=== PATIENT | male | born 1995 | race Caucasian/White ===

== ENCOUNTER 2021-07-18 18:55 | Observation (INO) | payer OTHER ==
[~2021-07-18] VITALS: Ht 162.6 cm; Wt 86.0 kg
--- NOTE | 2021-07-18 19:58 | PHYS DOC ---
General Adult EDM: Chief Complaint: UPPER EXTREMITY PAIN HPI: HPI: Patient is a 25-year-old male who presents with pain and soreness to his arms, chest, back and stomach. Patient states "on Tuesday I started working out pretty intense and I have been pretty sore". "On Tuesday I was having a hard time even lifting my arms up above my head and my urine has been really dark". "I was nervous because I had been drinking a ton of water". Patient denies any medical history. Patient is a smoker. Denies alcohol or drug use. (IQRA HUERTAS APRN) Review of Systems: Review of Systems: ROS At least 10 ROS systems have been reviewed and are negative except as documented in the HPI. General: Negative except as outlined in HPI above. Skin: Negative except as outlined in HPI above. HEENT: Negative except as outlined in HPI above. Neck: Negative except as outlined in HPI above. Respiratory: Negative except as outlined in HPI above.. Cardiovascular: Negative except as outlined in HPI above. Abdomen: Negative except as outlined in HPI above. : Negative except as outlined in HPI above. Back/MSK: Negative except as outlined in HPI above. Neuro: Negative except as outlined in HPI above. Psych: Negative except as outlined in HPI above. (IQRA HUERTAS SOCIAL MEDIA CAMPAIGN MANAGER) Physical Exam: PE: Constitutional: Well developed, well nourished, no acute distress, non-toxic appearance. [] HENT: Normocephalic, atraumatic, bilateral external ears normal, oropharynx moist, no oral exudates, nose normal. [] Eyes: PERRLA, EOMI, conjunctiva normal, no discharge. [] Neck: Normal range of motion, no tenderness, supple, no stridor. [] Cardiovascular:Heart rate regular rhythm, no murmur [] Lungs & Thorax: Bilateral breath sounds clear to auscultation [] Abdomen: Bowel sounds normal, soft, generalized tenderness, no masses, no pulsatile masses. [] Skin: Warm, dry, no erythema, no rash. [] Back: No tenderness, no CVA tenderness. [] Extremities: Upper arm tenderness, no cyanosis, no clubbing, ROM intact, no edema. [] Neurologic: Alert and oriented X 3, normal motor function, normal sensory function, no focal deficits noted. [] Psychologic: Affect normal, judgement normal, mood normal. [] (IQRA HUERTAS APRN) Current Patient Data: Labs: Laboratory Tests Test 07/18/21 20:50 White Blood Count 12.4 x10^3/uL Red Blood Count 5.30 x10^6/uL Hemoglobin 15.7 g/dL Hematocrit 45.9 % Mean Corpuscular Volume 87 fL Mean Corpuscular Hemoglobin 30 pg Mean Corpuscular Hemoglobin Concent 34 g/dL Red Cell Distribution Width 13.6 % Platelet Count 324 x10^3/uL Neutrophils (%) (Auto) 69 % Lymphocytes (%) (Auto) 20 % Monocytes (%) (Auto) 8 % Eosinophils (%) (Auto) 2 % Basophils (%) (Auto) 0 % Neutrophils # (Auto) 8.6 x10^3uL Lymphocytes # (Auto) 2.5 x10^3/uL Monocytes # (Auto) 1.0 x10^3/uL Eosinophils # (Auto) 0.3 x10^3/uL Basophils # (Auto) 0.0 x10^3/uL Urine Collection Type Unknown Urine Color Yuliana Urine Clarity Hazy Urine pH 6.0 Urine Specific [place] 1.015 Urine Protein 100 mg/dl Urine Glucose (UA) Neg mg/dL Urine Ketones (Stick) Neg mg/dL Urine Blood Large Urine Nitrite Neg Urine Bilirubin Neg Urine Urobilinogen Dipstick 1.0 mg/dL Urine Leukocyte Esterase Neg Urine RBC 3-5 /HPF Urine WBC 1-4 /HPF Urine Squamous Epithelial Cells Occ /LPF Urine Bacteria Few /HPF Sodium Level 141 mmol/L Potassium Level 4.1 mmol/L Chloride Level 103 mmol/L Carbon Dioxide Level 28 mmol/L Anion Gap 10 Blood Urea Nitrogen 16 mg/dL Creatinine 0.9 mg/dL Estimated GFR (Cockcroft-Gault) 103.7 BUN/Creatinine Ratio 18 Glucose Level 91 mg/dL Uric Acid 5.9 mg/dL Calcium Level 9.1 mg/dL Total Bilirubin 0.6 mg/dL Aspartate Amino Transf (AST/SGOT) 1525 U/L Alanine Aminotransferase (ALT/SGPT) 477 U/L Alkaline Phosphatase 74 U/L Creatine Kinase 72804 U/L Total Protein 7.2 g/dL Albumin 4.2 g/dL Albumin/Globulin Ratio 1.4 Current Medications Medications (Trade) Dose Ordered Sig/Cha Route PRN Reason Start Time Stop Time Status Last Admin Dose Admin Sodium Chloride 1,000 ml @ 1,000 mls/hr 1X ONCE IV 07/18/21 20:00 07/18/21 22:46 DC 07/18/21 20:54 Sodium Chloride 1,000 ml @ 1,000 mls/hr 1X ONCE IV 07/18/21 22:15 07/18/21 23:14 DC 07/18/21 22:30 Vital Signs: Vital Signs Date Time Temp Pulse Resp B/P (MAP) Pulse Ox O2 Delivery O2 Flow Rate FiO2 07/18/21 19:56 97.2 63 16 148/88 (108) 97 Room Air Vital Signs Date Time Temp Pulse Resp B/P (MAP) Pulse Ox O2 Delivery O2 Flow Rate FiO2 07/18/21 19:56 97.2 63 16 148/88 (108) 97 Room Air (DIANE FLORES DO) EKG: EKG: [] (IQRA HUERTAS APRN) EKG: EKG ordered and interpreted by myself at 2146 hrs. is sinus rhythm at 57 bpm, unremarkable intervals, no axis deviation, no acute ischemic findings, no STEMI (DIANE FLORES DO) Radiology/Procedures: Radiology/Procedures: [] (IQRA HUERTAS APRN) Heart Score: C/O Chest Pain: No Risk Factors: Risk Factors: DM, Current or recent (<one month) smoker, HTN, HLP, family history of CAD, obesity. Risk Scores: Score 0 - 3: 2.5% MACE over next 6 weeks - Discharge Home Score 4 - 6: 20.3% MACE over next 6 weeks - Admit for Clinical Observation Score 7 - 10: 72.7% MACE over next 6 weeks - Early Invasive Strategies (IQRA HUERTAS APRN) C/O Chest Pain: No HEART Score for Chest Pain: HEART Score for Chest Pain Response (Comments) Value History Slighlty/Non-Suspicious 0 ECG Normal 0 Age < 45 0 Risk Factors No Risk Factors 0 Total 0 (DIANE FLORES DO) Course & Med Decision Making: Course & Med Decision Making Pertinent Labs and Imaging studies reviewed. (See chart for details) [] 25-year-old male who presents with pain to upper body after starting an intense workout program on Tuesday. UA obtained. Urine was very dark and tea colored. CBC, CMP, CK, uric acid obtained to rule out rhabdomyolysis. Normal saline bolus started. UA positive for blood. Negative for infection. Second Liter NS bolus started. Transfer of patient care to @ 2211 (IQRA HUERTAS APRN) Course & Med Decision Making I assumed care of patient after PHOTOGRAPHY INTERN left for the evening I reviewed ER care so far after receiving comprehensive signout and personally saw patient repeating certain aspects of history and physical exam I reviewed all ER findings and disclose them with patient and significant other at bedside. I discussed my concern for rhabdomyolysis that will require inpatient medical management for continued IV fluids, patient and significant other amenable, source being excess physical activity I contacted hospitalist and discussed need for hospital admission, patient accepted under the care of Dr. Holt I have updated patient and significant other at bedside on need for hospital admission and they were amenable. All questions and concerns addressed prior to hospital admission (DIANE FLORES DO) Leslion Disclaimer: Dragtamara Disclaimer: This electronic medical record was generated, in whole or in part, using a voice recognition dictation system. (IQRA HUERTAS APRN) Departure Departure: Impression: Primary Impression: Rhabdomyolysis Disposition: ADMITTED INPATIENT Admitting Physician: Jr Holt (DIANE FLORES DO) Condition: STABLE IQRA HUERTAS APRN Jul 18, 2021 19:58 DIANE FLORES DO Jul 18, 2021 23:06
[2021-07-18] MEDS ORDERED: IV NORMAL SALINE 1,000ML 1,000 ML IV ONE ×2 (20:00→22:15)
[2021-07-18 21:34] LABS: BASO % 0 % (0-3); EOS # 0.3 x10^3/uL (0.0-0.7); EOS % 2 % (0-3); HEMATOCRIT 45.9 % (39.0-53.0); HEMOGLOBIN 15.7 g/dL (13.0-17.5); LYMPH # 2.5 x10^3/uL (1.0-4.8); LYMPH % 20 % (24-48); MEAN CORPUSCULAR HEMOGLOBIN 30 pg (25-35); MEAN CORPUSCULAR HGB CONC 34 g/dL (31-37); MEAN CORPUSCULAR VOLUME 87 fL (79-100); MONO % 8 % (0-9); NEUT # 8.6 x10^3uL (1.8-7.7); NEUT % 69 % (31-73); PLATELET COUNT 324 x10^3/uL (140-400); RED CELL DISTRIBUTION WIDTH 13.6 % (11.5-14.5); WHITE BLOOD COUNT 12.4 x10^3/uL (4.0-11.0)
[2021-07-18 21:41] LABS: CALCIUM 9.1 mg/dL (8.5-10.1); CREATININE 0.9 mg/dL (0.7-1.3); GFR 103.7; POTASSIUM 4.1 mmol/L (3.5-5.1)
[2021-07-18 21:50] LABS: BACTERIA,URINE FEW /HPF (0-FEW); BILIRUBIN,URINE NEG (NEG); CLARITY,URINE HAZY; COLOR,URINE AMBER; GLUCOSE,URINE NEG (NEG); NITRITE,URINE NEG (NEG); SQUAMOUS EPITHELIAL CELL,UR OCC /LPF
[2021-07-18 21:57] LABS: ALBUMIN 4.2 g/dL (3.4-5.0); ALBUMIN/GLOBULIN RATIO 1.4 (1.0-1.7); TOTAL BILIRUBIN 0.6 mg/dL (0.2-1.0); TOTAL PROTEIN 7.2 g/dL (6.4-8.2); URIC ACID 5.9 mg/dL (3.5-7.2)
--- NOTE | 2021-07-18 23:36 | EKG ---
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
[2021-07-18] MEDS ORDERED: ACETAMINOPHEN 325 MG TABLET PO PRN (23:45)
[2021-07-18] MEDS ORDERED: NITROGLYCERIN SUBLINGUAL 0.4 MG BOTTLE OF 25. SL PRN (23:45)
[2021-07-19 00:44] VITALS: BP 121/80
[2021-07-19] MEDS: IV NORMAL SALINE 1,000ML 1,000 ML IV SCH ×3 (00:54→08:30)
--- NOTE | 2021-07-19 01:18 | NUR ---
The patient, GOOD OSORIO, 25 y/o, M admitted by EMMA WOODS MD, was given written information regarding hospital policies, unit procedures and contact persons. Valuables were checked and left with the patient. Pt IV fluids resumed. Will continue to monitor.
[2021-07-19 06:32] VITALS: BP 116/66
[2021-07-19 06:57] LABS: ANION GAP 6 (6-14); BLOOD UREA NITROGEN 12 mg/dL (8-26); CALCIUM 8.4 mg/dL (8.5-10.1); CARBON DIOXIDE 28 mmol/L (21-32); CHLORIDE 106 mmol/L (98-107); CREATININE 0.8 mg/dL (0.7-1.3); GFR 118.8; GLUCOSE 100 mg/dL (70-99); POTASSIUM 4.4 mmol/L (3.5-5.1); SODIUM 140 mmol/L (136-145)
[2021-07-19 08:36] LABS: ALBUMIN 3.4 g/dL (3.4-5.0); ALBUMIN/GLOBULIN RATIO 1.1 (1.0-1.7); ALK PHOS 59 U/L (46-116); ALT (SGPT) 455 U/L (16-63); AST (SGOT) 1360 U/L (15-37); TOTAL BILIRUBIN 1.2 mg/dL (0.2-1.0); TOTAL PROTEIN 6.4 g/dL (6.4-8.2)
--- NOTE | 2021-07-19 08:44 | HP ---
ATTENDING PHYSICIAN: Dr. Holt. CHIEF COMPLAINT: Myalgias. 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 He started intense workout 4 days ago. Since that time, he has been very sore, having a hard time lifting his arm and his head. His urine has turned brown. In the ED, he had lab work done and he had significant rhabdomyolysis. Renal function was adequate. He was admitted then for hydration and followup chemistries. In the ED, his CPK was 83,900 with a concomitant elevation of ALT and AST, creatinine was 0.9 mg/dL. PAST MEDICAL HISTORY: Unremarkable for any chronic illness. He is 25. He is healthy. He does not have any chronic illnesses. No medications. ALLERGIES: No known drug allergies. SOCIAL HISTORY: He is a smoker. He does not drink alcohol or use drugs. FAMILY HISTORY: Interesting enough, his father at age 50 of hypertrophic cardiomyopathy. Since that time, he has been evaluated and he does not have the condition. His mom is still alive at age 53. He was born in [place]. He is active . REVIEW OF SYSTEMS: Significant for the problems that brought him in. All other systems reviewed and turned out to be negative. PHYSICAL EXAMINATION: GENERAL: When I saw him, this is a healthy young man. VITAL SIGNS: Initial vital signs showed blood pressure 116/66, pulse is 54 and regular, temperature 97.7 degrees Fahrenheit, oxygen saturation 96% on room air. HEENT: Head is without trauma. Pupils are reactive. Sclerae nonicteric. Oropharynx is clear. NECK: Supple, no bruits. LUNGS: Clear. CARDIOVASCULAR: Regular heart tones. ABDOMEN: Soft. No guarding or rebound tenderness. Normoactive bowel sounds. EXTREMITIES: Show no cyanosis or edema. There is no flank tenderness. NEUROLOGIC: Function focally intact. SKIN: Warm and dry. PERTINENT LABORATORY STUDIES: Admission hemoglobin was 15.7 g/dL, white count 12,400. Creatinine 0.9 mg/dL, BUN 16. Electrolytes within normal range. AST 1500, ALT 477. Creatinine kinase was 83,920. ASSESSMENT: 1. 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 2. There are no signs of renal compromise at this time. PLAN: 1. Admit to the inpatient unit. 2. IV hydration. 3. Follow up chemistries and CPK in the morning. 4. Diet as tolerated. [place] DR: Giovanny TID: [id number]
--- NOTE | 2021-07-19 08:58 | DS ---
DATE OF DISCHARGE: 07/19/2021 ATTENDING PHYSICIAN: Dr. Holt. DATE OF DISCHARGE: 07/19/2021 FINAL DISCHARGE DIAGNOSIS: Acute rhabdomyolysis. 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 He was doing intense workout 3 days prior he developed myalgias, dark urine. He had evidence of rhabdomyolysis with a CPK of 87,000. He was admitted for hydration and followup lab work. He is otherwise healthy. He is not on any chronic medicine. No drug use. PHYSICAL EXAMINATION: Please see my dictated note. PERTINENT LABORATORY AND X-RAY STUDIES: On admission, his creatinine was 0.9 mg/dL with a BUN of 16. His CPK was 83,900. ALT, AST concomitantly elevated. Followup lab work the next day showed stable creatinine of 0.8 mg/dL, BUN was 12 from dilution. His ALT and CPK was still pending at the time of discharge. COURSE IN THE HOSPITAL: The patient was admitted. He was given a regular diet, given IV hydration. Urine color changed to a clear. He had no signs. He had no symptoms of pain or myalgias. By the second hospital day, his vital signs were stable. He was ready for discharge. No restrictions on diet. Strong encouragement to quit smoking. I did recommend that he [place] [facility] for a followup chemistry and CPK in 1 week's time. He understands and will schedule an appointment. The patient was then discharged from our hospital in stable condition with explicit instructions for followup care. LLOYD/ANÍBAL GALICIA: LLOYD/char TID: [id number]
[2021-07-19] MEDS ORDERED: FLU VACC QUAD 21-22 (6MOS+) PF 0.5 ML SYRINGE. VAX IM ONE (09:00)
--- NOTE | 2021-07-19 09:08 | NUR ---
PATIENT REFUSED ANOTHER BAG OF FLUIDS THIS MORNING WELL HIS FLU VACCINE. PT STATES THAT HE WANTS TO RECIEVE FLU VACCINE AFTER HE FEELS BETTER DUE TO UPPER EXT SORENESS AND RHABDOMYOLYSIS. PT GIVEN INFORMATION ABOUT FOLLOWING UP THIS WEEK WITH PCP TO INFORM THEM OF THIS HOSPITALIZATION AND WHEN TO RESUME DAILY ACTIVITIES . ALSO PT REMINDED TO FOLLOW UP FOR LAB DRAWS TO INCLUDE CHEMISTRY AND CK IN A WEEK. PT GIVEN INFORMATION ON S/S OF WORSENING AND WHEN TO SEEK MEDICAL ATTENTION. PT GIVEN DISCHARGE INFORMATION WHICH HAS SMOKING CESSATION HANDOUTS WELL.
== END 2021-07-19 10:00 | disposition home or self-care (01) ==
LOC: ER 18:55 → 1 SOUTH 23:35 → INTOOBSV 23:35
PROVIDERS: ADMIT Hospitalist; ATTEND Hospitalist
DX: M62.82 Rhabdomyolysis (principal); Z20.822 Contact with and (suspected) exposure to COVID-19; F17.200 Nicotine dependence, unspecified, uncomplicated; Z79.899 Other long term (current) drug therapy
CPT/HCPCS: 36415; 80048; 80053; 81001; 82550; 84550; 85025; 87426; 93005; 96360; 96361; 99284; G0378; J7030; U0003; G0379; 99285-25

== ENCOUNTER 2021-07-21 12:56 | Emergency (ER) | payer OTHER ==
[~2021-07-21] VITALS: Ht 162.6 cm; Wt 86.0 kg
[2021-07-21] MEDS: IV NORMAL SALINE 1,000ML 1,000 ML IV ONE ×3 (14:00→18:30)
[2021-07-21] MEDS ORDERED: ONDANSETRON PF 4 MG/2 ML VIAL. ONE (14:11)
[2021-07-21 14:19] LABS: BASO # 0.1 x10^3/uL (0.0-0.2); BASO % 1 % (0-3); EOS # 0.2 x10^3/uL (0.0-0.7); EOS % 2 % (0-3); HEMATOCRIT 43.8 % (39.0-53.0); HEMOGLOBIN 14.9 g/dL (13.0-17.5); LYMPH # 1.8 x10^3/uL (1.0-4.8); LYMPH % 20 % (24-48); MEAN CORPUSCULAR HEMOGLOBIN 29 pg (25-35); MEAN CORPUSCULAR HGB CONC 34 g/dL (31-37); MEAN CORPUSCULAR VOLUME 87 fL (79-100); MONO # 0.8 x10^3/uL (0.0-1.1); MONO % 9 % (0-9); NEUT # 6.2 x10^3uL (1.8-7.7); NEUT % 68 % (31-73); PLATELET COUNT 310 x10^3/uL (140-400); RED BLOOD COUNT 5.06 x10^6/uL (4.30-5.70); RED CELL DISTRIBUTION WIDTH 13.5 % (11.5-14.5)
[2021-07-21 14:30] LABS: BACTERIA,URINE FEW /HPF (0-FEW); BILIRUBIN,URINE NEG (NEG); CLARITY,URINE CLEAR; COLOR,URINE YELLOW; GLUCOSE,URINE NEG (NEG); NITRITE,URINE NEG (NEG); UROBILINOGEN,URINE 0.2 mg/dL (0.2 mg/dL)
[2021-07-21 14:58] LABS: CALCIUM 9.4 mg/dL (8.5-10.1); GFR 91.8; POTASSIUM 4.3 mmol/L (3.5-5.1)
[2021-07-21] MEDS: ONDANSETRON PF 4 MG/2 ML VIAL. IVP ONE (15:00)
[2021-07-21 15:16] LABS: ALBUMIN 4.2 g/dL (3.4-5.0); ALBUMIN/GLOBULIN RATIO 1.4 (1.0-1.7); MAGNESIUM 1.9 mg/dL (1.8-2.4); TOTAL BILIRUBIN 0.9 mg/dL (0.2-1.0); TOTAL PROTEIN 7.3 g/dL (6.4-8.2)
[2021-07-21] MEDS ORDERED: OXYC5TAB4 PO (20:15)
--- NOTE | 2021-07-21 20:17 | PHYS DOC ---
Past History Past Surgical History: No Surgical History Alcohol Use: None General Adult EDM: Chief Complaint: ABDOMINAL PAIN HPI: HPI: Patient is a [age] year old [sex] who presents with [] Review of Systems: Review of Systems: Constitutional: Denies fever or chills Eyes: Denies change in visual acuity HENT: Denies nasal congestion or sore throat Respiratory: Denies cough or shortness of breath Cardiovascular: Denies chest pain or edema GI: Denies abdominal pain, nausea, vomiting, bloody stools or diarrhea : Denies dysuria Musculoskeletal: Denies back pain or joint pain Integument: Denies rash Neurologic: Denies headache, focal weakness or sensory changes Endocrine: Denies polyuria or polydipsia Lymphatic: Denies swollen glands Psychiatric: Denies depression or anxiety Current Medications: Current Meds: Current Medications Medications (Trade) Dose Ordered Sig/Cha Start Time Stop Time Status Last Admin Dose Admin Ondansetron HCl (Zofran) 4 mg 1X ONCE 07/21/21 15:00 07/21/21 15:01 DC 07/21/21 15:00 4 MG Sodium Chloride 1,000 ml @ 1,000 mls/hr 1X ONCE 07/21/21 18:30 07/21/21 19:29 DC 07/21/21 18:30 1,000 MLS/HR Allergies: Allergies: Allergies Coded Allergies Type Severity Reaction Last Updated Verified No Known Drug Allergies 07/18/21 No Physical Exam: PE: Constitutional: Well developed, well nourished, no acute distress, non-toxic appearance. [] HENT: Normocephalic, atraumatic, bilateral external ears normal, oropharynx moist, no oral exudates, nose normal. [] Eyes: PERRLA, EOMI, conjunctiva normal, no discharge. [] Neck: Normal range of motion, no tenderness, supple, no stridor. [] Cardiovascular:Heart rate regular rhythm, no murmur [] Lungs & Thorax: Bilateral breath sounds clear to auscultation [] Abdomen: Bowel sounds normal, soft, no tenderness, no masses, no pulsatile masses. [] Skin: Warm, dry, no erythema, no rash. [] Back: No tenderness, no CVA tenderness. [] Extremities: No tenderness, no cyanosis, no clubbing, ROM intact, no edema. [] Neurologic: Alert and oriented X 3, normal motor function, normal sensory function, no focal deficits noted. [] Psychologic: Affect normal, judgement normal, mood normal. [] Current Patient Data: Labs: Laboratory Tests Test 07/21/21 14:02 White Blood Count 9.0 x10^3/uL (4.0-11.0) Red Blood Count 5.06 x10^6/uL (4.30-5.70) Hemoglobin 14.9 g/dL (13.0-17.5) Hematocrit 43.8 % (39.0-53.0) Mean Corpuscular Volume 87 fL (79-100) Mean Corpuscular Hemoglobin 29 pg (25-35) Mean Corpuscular Hemoglobin Concent 34 g/dL (31-37) Red Cell Distribution Width 13.5 % (11.5-14.5) Platelet Count 310 x10^3/uL (140-400) Neutrophils (%) (Auto) 68 % (31-73) Lymphocytes (%) (Auto) 20 % (24-48) L Monocytes (%) (Auto) 9 % (0-9) Eosinophils (%) (Auto) 2 % (0-3) Basophils (%) (Auto) 1 % (0-3) Neutrophils # (Auto) 6.2 x10^3uL (1.8-7.7) Lymphocytes # (Auto) 1.8 x10^3/uL (1.0-4.8) Monocytes # (Auto) 0.8 x10^3/uL (0.0-1.1) Eosinophils # (Auto) 0.2 x10^3/uL (0.0-0.7) Basophils # (Auto) 0.1 x10^3/uL (0.0-0.2) Urine Collection Type Unknown Urine Color Yellow Urine Clarity Clear Urine pH 7.5 Urine Specific [place] 1.020 Urine Protein Neg (NEG-TRACE) Urine Glucose (UA) Neg mg/dL (NEG) Urine Ketones (Stick) Neg mg/dL (NEG) Urine Blood Small (NEG) Urine Nitrite Neg (NEG) Urine Bilirubin Neg (NEG) Urine Urobilinogen Dipstick 0.2 mg/dL (0.2 mg/dL) Urine Leukocyte Esterase Neg (NEG) Urine RBC 1-2 /HPF (0-2) Urine WBC 1-4 /HPF (0-4) Urine Squamous Epithelial Cells None /LPF Urine Bacteria Few /HPF (0-FEW) Sodium Level 140 mmol/L (136-145) Potassium Level 4.3 mmol/L (3.5-5.1) Chloride Level 103 mmol/L (98-107) Carbon Dioxide Level 30 mmol/L (21-32) Anion Gap 7 (6-14) Blood Urea Nitrogen 11 mg/dL (8-26) Creatinine 1.0 mg/dL (0.7-1.3) Estimated GFR (Cockcroft-Gault) 91.8 BUN/Creatinine Ratio 11 (6-20) Glucose Level 84 mg/dL (70-99) Calcium Level 9.4 mg/dL (8.5-10.1) Magnesium Level 1.9 mg/dL (1.8-2.4) Total Bilirubin 0.9 mg/dL (0.2-1.0) Aspartate Amino Transferase (AST) 1559 U/L (15-37) H Alanine Aminotransferase (ALT) 827 U/L (16-63) H Alkaline Phosphatase 71 U/L (46-116) Creatine Kinase 32919 U/L (39-308) H Total Protein 7.3 g/dL (6.4-8.2) Albumin 4.2 g/dL (3.4-5.0) Albumin/Globulin Ratio 1.4 (1.0-1.7) Lipase 180 U/L (73-393) Vital Signs: Vital Signs Date Time Temp Pulse Resp B/P (MAP) Pulse Ox O2 Delivery O2 Flow Rate FiO2 07/21/21 13:48 98.2 58 16 113/64 (80) 98 Room Air EKG: EKG: [] Radiology/Procedures: Radiology/Procedures: [] Heart Score: Risk Factors: Risk Factors: DM, Current or recent (<one month) smoker, HTN, HLP, family history of CAD, obesity. Risk Scores: Score 0 - 3: 2.5% MACE over next 6 weeks - Discharge Home Score 4 - 6: 20.3% MACE over next 6 weeks - Admit for Clinical Observation Score 7 - 10: 72.7% MACE over next 6 weeks - Early Invasive Strategies Course & Med Decision Making: Course & Med Decision Making Pertinent Labs and Imaging studies reviewed. (See chart for details) [] Emanuel Disclaimer: Emanuel Disclaimer: This electronic medical record was generated, in whole or in part, using a voice recognition dictation system. Departure Departure: Impression: Primary Impression: Elevated CPK Additional Impression: Elevated liver enzymes Disposition: HOME / SELF CARE / HOMELESS Condition: STABLE Referrals: JULIO C FISH (PCP) Patient Instructions: Muscle Biopsy, Rhabdomyolysis Additional Instructions: Your enzymes (CPK) is still significantly elevated but improving from prior. There is concern for a muscle disorder that requires further evaluation and may include need for a muscle biopsy. Please follow closely with your doctor for further management and repeat labs as previously scheduled. Increase fluid hydration. Refrain from taking any medications with Tylenol or Ibuprofen/Naproxen given your abnormal labs. May take prescribed pain medication as directed. Scripts Oxycodone Hcl (OXYCODONE HCL IMMED.RELEASE ) 5 Mg Tablet 0.5-1 TAB PO PRN Q6HRS PRN for PAIN, #10 TAB Prov: JAH LUTZ DO 07/21/21 JAH LUTZ DO Jul 21, 2021 20:17
[2021-07-21 20:25] VITALS: BP 141/54
== END 2021-07-21 20:25 | disposition home or self-care (01) ==
LOC: ER 12:56
DX: R74.8 Abnormal levels of other serum enzymes (principal)
CPT/HCPCS: 36415; 80053; 81001; 82550; 83690; 83735; 85025; 96361; 96374; 99283; J2405; J7030